=== PATIENT | male | born 1950 | race Caucasian/White ===

== ENCOUNTER → 2018-10-12 08:40 | Outpatient (CLI) | payer OTHER, SELFPAY ==
--- NOTE | 2018-10-12 | DI.NM.S_ITS ---
PROCEDURE: NM DUARTE PERF SPECT REST & STR Rest and exercise myocardial perfusion SPECT with gated imaging and ejection fraction RADIOPHARMACEUTICAL: 13.8 mCi Tc-99m sestamibi IV at rest and 25.4 mCi Tc-99m sestamibi IV at peak exercise. A one day-protocol was performed. INDICATIONS: FATIGUE TECHNIQUE: Radiopharmaceutical was injected at peak stress test, and also at rest. SPECT images were obtained. SPECT myocardial perfusion images were displayed in short axis, horizontal long axis, and vertical long axis views. Gated images were reviewed using [employer] software. COMPARISON: None. CARDIAC STRESS: A standard Zaid treadmill exercise tolerance test was performed by the patient under the supervision of an attending staff. The patient exercised for 6 minutes and 2 seconds reaching 7.0 METs; functional aerobic impairment (SERVANDO) is +15%. Hemodynamic data: There is normal heart rate response to exercise stress. Patient achieved 99% of maximum predicted heart rate at peak exercise. Hypertensive response to exercise (rest BP 142/80mmHG, max BP 220/75mmHg). Symptoms: Patient denied chest pain during exercise. EKG: Resting ECG shows sinus rhythm with no ST-T chagnes. No diagnostic EKG changes of ischemia with exercise. FINDINGS: Raw data: There is good myocardial labeling by radiotracer. No significant motion artifacts. Bofm-zd-hniuq ratio is 0.39 (normal is less than 0.38 for sestamibi tracer, and less than 0.50 for thallium tracer). Left ventricle function: Gated images demonstrate normal left ventricle wall thickening. No segmental wall motion abnormality. No transient ischemic dilation; TID is 0.79 (normal less than 1.3). The left ventricle resting end-diastolic volume is 128 mL. Left ventricle stress ejection fraction is 81%; normal values are above 45%. Myocardial perfusion: There is normal distribution of activity in the left and right ventricular myocardium. No fixed or reversible perfusion defects. IMPRESSION: Low risk, normal treadmill nuclear stress test. Hypertensive response to exercise. 1) Normal perfusion images, with no evidence of ischemia or infarction. 2) Normal left ventricular size and function (post stress EF 81%). 3) No ECG evidence of ischemia 4) No angina during the study. 5) Mildly reduced exercise capacity (7.0 METs, SERVANDO +15%). Target heart rate achieved. 6) Hypertensive response to exercise (rest BP 142/80mmHG, max BP 220/75mmHg). 7) No prior nuclear stress test available for comparison. Dictated by: Maru Soria MD on 10/12/2018 at 17:02 Approved by: Maru Soria MD on 10/12/2018 at 17:06
--- NOTE | 2018-10-12 14:53 | PM.TREADMILL ---
Cardiac Stress Test Report Referral & Results Date Patient Seen: 10/12/18 Requesting provider: Sunny Guadarrama Indication: Fatigue, lightheadedness, syncope Rest ECG: Unremarkable Procedure Note: Today following both written and verbal informed consent the patient was exercised according to a standard Zaid protocol patient went for a total of 6 min to seconds achieving a maximum heart rate of 149 maximum systolic blood pressure of 220. This is approximately 7.0 METS. Exercise was terminated at this point because of targets were met. Patient was also given Cardiolite through a previously started Hep-Lock IV by the nuclear waste management engineer approximately 1 minute prior to the cessation of exercise. Patient was quickly hypertensive with 1st blood pressure being 190. His peak blood pressure was also excessively high. He remained hypertensive throughout the monitoring period. No ST-T segment changes No dysrhythmia Functional aerobic impairment rated 15% on the active scale although patient clearly could have continued longer on the treadmill, it was stopped early because of his hypertension and targets were met Impression: No evidence of ischemia Hypertension (off metoprolol) Please see perfusion imaging for further details regarding possible ischemia Please note: Actual ECG tracings can be found in the PACS system.
== END ==
PROVIDERS: PCP Student in an Organized Health Care Education/Training Program; Visit Provider Student in an Organized Health Care Education/Training Program
DX: R53.83 Other fatigue (principal); R42 Dizziness and giddiness; R55 Syncope and collapse; I10 Essential (primary) hypertension
CPT/HCPCS: 78452; 93016; 93017; 93018; A9502